=== PATIENT | female | born 1980 ===

== ENCOUNTER 2017-01-31 09:09 | Emergency (ER) | payer OTHER ==
[2017-01-31 09:15] VITALS: BP 134/88; PULSE 80; RESP 20; TEMP 98.1; O2SAT 99
--- NOTE | 2017-01-31 09:42 | ED PDOC ---
HPI: CCC, URI, Sore Throat Time Seen by Provider: 01/31/17 09:28 Chief Complaint (Nursing): Abnormal Skin Integrity Chief Complaint (Provider): Abnormal Skin Integrity History Per: Patient History/Exam Limitations: no limitations Onset/Duration Of Symptoms: Days Current Symptoms Are (Timing): Still Present Location Of Pain: Throat Sick Contacts (Context): None Associated Symptoms: Chills, Cough, Nasal Congestion Ear Symptoms: Bilateral: None Severity: Mild Additional Complaint(s): Patient is a 36 year old female who presents to ED for evaluation of sore throat for 2 days. Patient report pain is associated with cough, runny nose, body aches and chills. Patient states taking vitamin C and gargling with listerine without relief. Patient also notes that her daughter was diagnosed with lice, although she was checked they advised her to treat with Rid. States that since the treatment her head has been very itchy, believes she may have had a reaction to the medication . Past Medical History Reviewed: Historical Data, Nursing Documentation, Vital Signs Vital Signs: Last Vital Signs Temp 98.1 F 01/31/17 09:14 Pulse 80 01/31/17 09:14 Resp 20 01/31/17 09:14 BP 134/88 01/31/17 09:14 Pulse Ox 99 01/31/17 09:45 - Medical History PMH: No Chronic Diseases - Surgical History Surgical History: No Surg Hx - Family History Family History: States: No Known Family Hx - Living Arrangements Living Arrangements: With Family - Home Medications Home Medications: Ambulatory Orders Medication Instructions Recorded No Known Home Med 01/31/17 - Allergies Allergies/Adverse Reactions: Allergies Allergy/AdvReac Type Severity Reaction Status Date / Time No Known Allergies Allergy Verified 01/31/17 09:28 Review of Systems ROS Statement: Except As Marked, All Systems Reviewed And Found Negative Constitutional: Positive for: Chills. Negative for: Fever ENT: Positive for: Throat Pain. Negative for: Ear Pain Cardiovascular: Negative for: Chest Pain Respiratory: Negative for: Shortness of Breath Physical Exam - Reviewed Nursing Documentation Reviewed: Yes Vital Signs Reviewed: Yes - Physical Exam Appears: Positive for: Non-toxic, No Acute Distress Head Exam: Positive for: NORMAL INSPECTION ((-) rash, (-) lice) Skin: Positive for: Normal Color, Warm. Negative for: Rash Eye Exam: Positive for: Normal appearance ENT: Negative for: Nasal Congestion, Pharyngeal Erythema, Tonsillar Exudate, Tonsillar Swelling Neck: Positive for: Normal, Painless ROM, Supple Extremity: Positive for: Normal ROM Neurologic/Psych: Positive for: Alert, Oriented - ECG O2 Sat by Pulse Oximetry: 99 (RA) Pulse Ox Interpretation: Normal Medical Decision Making Medical Decision Making: Time: 0930 Initial impression: Medication reaction. Sore throat r/o strep Initial plan: -- Rapid strep Scribe Attestation: Documented by Kristina Dobbins acting as a scribe for Radha Gómez MD MD Scribe Attestation: All medical record entries made by the Scribe were at my direction and personally dictated by me. I have reviewed the chart and agree that the record accurately reflects my personal performance of the history, physical exam, medical decision making, and the department course for this patient. I have also personally directed, reviewed, and agree with the discharge instructions and disposition. Disposition - Clinical Impression Clinical Impression: Skin irritation, Upper respiratory tract infection - Patient ED Disposition Is Patient to be Admitted: No Doctor Will See Patient In The: Office Counseled Patient/Family Regarding: Studies Performed, Diagnosis, Need For Followup - Disposition [facility] Disposition: Routine/Home Disposition Time: 11:10 Condition: GOOD Additional Instructions: Take benadryl for itching. Take tylenol or motrin for sore throat. Follow up with your PCP in 3 days. Instructions: Upper Respiratory Infection (ED)
== END 2017-01-31 11:28 | disposition home or self-care (01) ==
LOC: H.ER 09:09
DX: J06.9 Acute upper respiratory infection, unspecified (principal); J02.9 Acute pharyngitis, unspecified